=== PATIENT | female | born 1995 | race Caucasian/White ===

== ENCOUNTER 2025-06-05 21:35 | Emergency (ER) | payer MEDICAID, SELFPAY ==
[2025-06-05 21:36] VITALS: BMI 26.6
[2025-06-05 22:35] VITALS: BP 132/83; PULSE 84; RESP 18; TEMP 37; O2SAT 99
--- NOTE | 2025-06-05 22:45 | PD.EDFMALE ---
ED Female Urogenital RME/HPI General Chief complaint: Urogenital-Female Stated complaint: 9WKS , URINING BLOOD Time Seen by Provider: 06/05/25 21:42 Arrival date/time: 06/05/25 21:35 RME / HPI RME / HPI Narrative: Very pleasant 29-year-old female presents to the ED with a complaint of dysuria, frequency and hematuria as well as lower pelvic cramping and diarrhea that began at 5 PM tonight. She has had nausea and vomiting associated with her . Her last menstrual period was 03/27/2025 and is approximately 9 weeks . She has not had an ultrasound for confirmation of dates. Related Data Home Medications ?Medication ?Instructions ?Recorded ?Confirmed vitamin with calcium 1 tab PO QDAY 11/05/20 06/01/24 no.72-iron 27 mg-folic acid 1 mg tablet ( Vitamins Plus Low Iron) Previous Rx's ?Medication ?Instructions ?Recorded cephalexin 500 mg capsule 500 mg PO BID 10 days #20 caps 06/06/25 Allergies Allergy/AdvReac Type Severity Reaction Status Date / Time amoxicillin Allergy Severe Rash Verified 06/05/25 21:36 Review of Systems Review of Systems Systems Reviewed: All systems reviewed, normal except as documented Past Medical History Past Medical History NEUROLOGIC: Negative Neurological Disorders CARDIAC: Negative Cardiac Disorders or Congestive Heart Failure RESPIRATORY: Negative Chronic Obstructive Pulmonary Disease (COPD) GASTROINTESTINAL: Positive Gastrointestinal Disorders and Gall Bladder Disease; Negative Hepatitis GENITOURINARY: Negative Genitourinary Disorders or Renal Disease MUSCULOSKELETAL: Negative Musculoskeletal Disorders ENDOCRINE: Negative Endocrine Disorders, Diabetes Mellitus Type 1 or Diabetes Mellitus Type 2 HEMATOLOGIC: Negative Blood Disorders OTHER HISTORY: Negative Autoimmune Disease, Human Immunodeficiency Virus (HIV), Chicken Pox, Measles, Mumps, Rubella ([place] Measles), Pertussis or Clostridium Difficile Family History FAMILY HISTORY: Positive Family Respiratory Disorders, Family Cardiac Disorders, Family Gastrointestinal Problems, Family Cancer and Family Surgery; Negative Family Psychiatric Problems or Family Anesthesia Reaction Surgical History SURGICAL: Negative Section Social History SMOKING STATUS: Never smoker SUBSTANCE USE: does not use ED Exam Narrative Physical exam: Alert and oriented, very pleasant 29-year-old female, no acute distress. Lungs are clear, regular rate and rhythm. Abdomen is soft and nontender. No CVA tenderness or flank tenderness noted. Moves all extremities well. Course Course Course Narrative: Current vital signs blood pressure 132/83, pulse 84, respirations 18 and nonlabored, temp 98.6, O2 sat 99% on room air. CBC reveals an elevated white count of 18.4, normal hemoglobin, minimally low hematocrit of 35.8 with normal platelets. Absolute neutrophil count is significantly elevated at 14.9. Chemistry panel reveals normal electrolytes with the exception of a minimally elevated glucose of 110. Normal renal function and LFTs. Beta-hCG is 123,512. Urinalysis reveals clear colorless urine with a specific gravity of 1.004 with trace protein, 3+ blood, negative nitrites, positive leukocyte esterase, 7 RBCs, 50 WBCs and rare bacteria. Blood bank test reveal a positive blood. ultrasound reveals: A normal shaped single intrauterine gestation is present in the uterus. CRL 2.0 cm corresponds to a 8 weeks 4 days gestational age Subchorionic hemorrhage 32 x 11 mm Ultrasonographic survey of visible structures unremarkable. Amniotic fluid volume appears appropriate for this estimated gestational age. Right ovary 3.0 cm arterial flow Left ovary 2.4 cm arterial flow Patient was given 1 L of sodium chloride IV as well as ceftriaxone 2 g IV. She has been afebrile and nontachycardic since her arrival here in the ED, indicating sepsis is unlikely. Quality Measures none Orders Category Date Time Status US OB <= 14 weeks fetus Stat Exams 06/05/25 22:48 Completed ABO/RH Type Stat Lab 06/05/25 22:55 Completed Beta HCG,Quantitative Stat Lab 06/05/25 22:55 Completed CBC Stat Lab 06/05/25 22:55 Completed CMP [Comprehensive Metabolic Panel] Stat Lab 06/05/25 22:55 Completed UA, C/S IF [Urinalysis, C/S if Indicated] Stat Lab 06/05/25 23:01 Completed Urine Culture Stat Lab 06/05/25 23:01 Received Sodium Chloride 0.9% 1000 ml [Ns] 1,000 ml Med 06/05/25 23:24 Discontinued IV 999 mls/hr cefTRIAXone [Rocephin] 2 gm Med 06/05/25 23:30 Discontinued SODIUM CHLORIDE 0.9% (Popper) [Ns 0.9% (P)] 100 ml IV X1 cefTRIAXone [Rocephin] 2 gm Med 06/05/25 23:27 Pending SODIUM CHLORIDE 0.9% (Popper) [Ns 0.9% (P)] 50 ml IV QDAY Vital Signs Vital signs: Vital Signs Temperature 98.6 F 06/05/25 22:35 Pulse Rate 84 06/05/25 22:35 Respiratory Rate 18 06/05/25 22:35 Blood Pressure 132/83 H 06/05/25 22:35 Pulse Oximetry (%) 99 06/05/25 22:35 Oxygen Delivery Method Room Air 06/05/25 22:35 Urogenital - Female Medications / Prescriptions Medication administrations:: Medication Administration History Ceftriaxone Sodium 2 gm/ (Sodium Chloride) 50 mls @ 100 mls/hr IV QDAY CASSIA Stop: 06/12/25 23:26 Discontinued Medications Sodium Chloride (Ns) 1,000 mls @ 999 mls/hr IV .Q1H1M ONE Stop: 06/06/25 00:24 Last Infusion: 06/06/25 01:19 Dose: Infused Documented By: Admin: 06/06/25 00:07 Dose: 999 mls/hr Documented By: CURTIS Ceftriaxone Sodium 2 gm/ (Sodium Chloride) 100 mls @ 200 mls/hr IV X1 ONE Stop: 06/05/25 23:59 Last Infusion: 06/06/25 01:19 Dose: Infused Documented By: Admin: 06/06/25 00:08 Dose: 200 mls/hr Documented By: CURTIS Discharge Plan Plan Patient Disposition: HOME (Self Care) Discharge Disposition comment: Stable and Improved Prescriptions/Referrals Prescriptions/Med Rec: New cephalexin 500 mg capsule 500 mg PO BID 10 Days Qty: 20 0RF No Action Vitamin Plus Low Iron 27 mg iron- 1 mg tablet 1 tab PO QDAY Patient Comments: TAKE ONE TABLET BY MOUTH DAILY Referrals: No Primary/Family,Physician [Primary Care Provider] - In 1 week Problem List Clinical Impression: Intrauterine , UTI (urinary tract infection), Subchorionic hemorrhage in first trimester Patient/Caregiver Discharge Instructions Education Materials: First Trimester, Bleeding During Early , ED CYSTITIS Female Adult Additional Instructions: Thank you for the pleasure of providing your Emergency care, and Congratulations on your ! Take your antibiotics as prescribed and complete the course even though you may be feeling better. Keep your appointment tomorrow with [facility] for a referral to an supervisor respiratory for close follow-up of the subchorionic hemorrhage. Return to the ED for any new or worsening symptoms. Print Language: Hong Konger Stand Alone Forms: Mag Award Info., Patient Portal Info Letter KAMALA/PRENATAL GENETIC COUNSELOR Supervising Physician PA/PRENATAL GENETIC COUNSELOR Supervising Physician: Dr. Diaz
--- NOTE | 2025-06-05 22:48 | XR_ITS ---
Examination: Complete OB ultrasound, less than 14 weeks, transabdominal Date and time of exam: June 05, 2025 at 1120 hours INDICATIONS: Pelvic pain hematuria today Technique: Obstetrical ultrasound images less than 14 weeks performed via transabdominal imaging Findings: A normal shaped single intrauterine gestation is present in the uterus. CRL 2.0 cm corresponds to a recent 4 days gestational age Subchorionic hemorrhage 32 x 11 mm Ultrasonographic survey of visible structures unremarkable. Amniotic fluid volume appears appropriate for this estimated gestational age. Right ovary 3.0 cm arterial flow Left ovary 2.4 cm arterial flow IMPRESSION: Viable intrauterine gestation 8 weeks 4 days, recommend continued short-term follow-up given the subchorionic hemorrhage.
[2025-06-05 23:09] LABS: Collection Type, Urine Clean Catch
[2025-06-05 23:12] LABS: Basophils # (Auto) 0.1 Thou/mm3 (0.0-0.2); Basophils % (Auto) 0 % (0-2.5); Eosinophils # (Auto) 0.0 Thou/mm3 (0.0-0.5); Eosinophils % (Auto) 0 % (0-10); Hematocrit 35.8 % (36.0-46.0); Hemoglobin 12.9 g/dL (12.0-16.0); Immature Granulocytes Auto 0.08 Thou/mm3 (0.00-0.00); Lymphocytes # (Auto) 2.3 Thou/mm3 (1.0-4.8); Lymphocytes % (Auto) 13 % (10-50); Mean Corpuscular HGB Conc 36.0 g/dl (31.0-37.0); Mean Corpuscular Hemoglobin 31.5 pg (25.0-35.0); Mean Corpuscular Volume 87 fL (80-100); Monocytes # (Auto) 1.0 Thou/mm3 (0.0-0.8); Monocytes % (Auto) 6 % (0-12); Neutrophils # (Auto) 14.9 Thou/mm3 (1.8-7.7); Neutrophils % (Auto) 81 % (37-80); Nucleated Red Blood Cell # 0.00 Thou/mm3 (0.00-0.00); Nucleated Red Blood Cell % 0 /100 WBC (0); Platelet Count 305 Thou/mm3 (140-440); RDW Standard Deviation 41.8 fL (36.4-46.3); Red Blood Count 4.10 Miln/mm3 (4.00-5.20); White Blood Count 18.4 Thou/mm3 (3.6-11.0)
[2025-06-05 23:16] LABS: Amorphous Crystals,Urine Present (Absent); Bacteria,Urine Rare; Bilirubin,Urine Negative (Negative); Blood,Urine 3+ (Negative); Clarity,Urine Clear (Clear/Hazy); Color,Urine Colorless (Lt Yel-Yel); Glucose, Urine Negative (Negative); Ketones,Urine Negative (Negative); Leukocyte Esterase,Urine Positive (Negative); Nitrite,Urine Negative (Negative); PH,Urine 6.5 (5.0-7.0); Protein,Urine Trace (Neg - Trace); RBC,Urine 7 /hpf (0-3); Specific Gravity,Urine 1.004 (1.001-1.035); Squamous Epithelial Cell,Urine 1 /hpf (0-5); Urobilinogen,Urine Negative mg/dL (0.0-1.0); WBC,Urine 50 /hpf (0-5)
[2025-06-05 23:20] LABS: Culture Indicated,Urine Yes
[2025-06-05 23:30] LABS: Alanine Aminotransferase 26 U/L (10-49); Albumin, Serum 4.6 gm/dL (3.5-5.0); Albumin/Globulin Ratio 1.9 (1.2-2.2); Alkaline Phosphatase 48 U/L (46-116); Anion Gap 10 (7-16); Aspartate Amino Transferase 15 U/L (0-34); BUN/Creatinine Ratio 10 Ratio (12-20); Bilirubin,Total 0.6 mg/dL (0.3-1.2); Blood Urea Nitrogen 7 mg/dL (9-23); Calcium 9.7 mg/dL (8.3-10.6); Calcium (Corrected) 9.7 mg/dL (8.5-10.1); Carbon Dioxide 25.6 mMol/L (20.0-31.0); Chloride 103 mMol/L (98-107); Creatinine (Component) 0.7 mg/dL (0.6-1.3); Estimated Creatinine Clearance 137.9 mL/min (>60); Globulin 2.4 gm/dL (2.3-3.5); Glucose 110 mg/dL (74-106); Osmolality,Calculated 276 (275-295); Potassium 3.6 mMol/L (3.4-5.1); Sodium 139 mMol/L (136-145); Total Protein 7.0 gm/dL (5.7-8.2); eGFR > 60 See Note
[2025-06-06] MEDS: SODIUM CHLORIDE 0.9% 1000 ML 1,000 ML 999 ML IV (00:07)
[2025-06-06] MEDS: cefTRIAXone 2 GM in SODIUM CHLORIDE 0.9% (Popper) 100 ML IV (00:08)
[2025-06-06 00:17] LABS: Beta HCG,Quantitative 123512 mIU/mL (<5.0)
[2025-06-06 02:03] VITALS: BP 125/67; PULSE 78; RESP 18; TEMP 37.3; O2SAT 99
== END 2025-06-06 02:04 | disposition home or self-care (01) ==
PROVIDERS: Physician Assistant; Emergency Provider Emergency Medicine
DX: O20.8 Other hemorrhage in early pregnancy (principal); O23.41 Unspecified infection of urinary tract in pregnancy, first trimester; N39.0 Urinary tract infection, site not specified; Z3A.09 9 weeks gestation of pregnancy
CPT/HCPCS: 36415; 76801; 80053; 81001; 84702; 85025; 86900; 86901; 87086; 96365; 99283; J0696; J7030; J7050